=== PATIENT | male | born 1960 | race African-American/Black ===

== ENCOUNTER 2021-12-25 07:26 | Emergency (ER) | payer OTHER ==
[~2021-12-25] VITALS: Ht 167.6 cm; Wt 84.2 kg
[2021-12-25 08:03] VITALS: BP 134/98
[2021-12-25] MEDS ORDERED: CLIN300C8 PO (08:10)
[2021-12-25] MEDS ORDERED: LIDOCAINE 1% HCL (LOCAL ANESTH.) INJ 20ML MDV ONE (08:13)
[2021-12-25] MEDS ORDERED: ACETAMINOPHEN 325 MG TAB PO ONE (08:15)
[2021-12-25] MEDS ORDERED: cefTRIAXone SOD 1,000 MG VL IM ONE (08:15)
== END 2021-12-25 08:31 | disposition home or self-care (01) ==
LOC: ER 07:26
DX: K04.7 Periapical abscess without sinus (principal)
CPT/HCPCS: 96372; 99283; J0696; J2001